=== PATIENT | female | born 2000 | race African-American/Black ===

== ENCOUNTER 2023-07-06 19:46 | Emergency (ER) | payer OTHER ==
[~2023-07-06] VITALS: Ht 160 cm; Wt 59.5 kg
[2023-07-06 19:47] VITALS: TEMP 98.5
[2023-07-06] MEDS ORDERED: MULTTAB20 PO (19:53)
[2023-07-06 22:32] LABS: VENOUS BASE EXCESS -4.1 (-2.0-2.0); VENOUS O2 SATURATION 57.7 % (60.0-80.0); VENOUS PARTIAL PRESSURE CO2 38.8 mmHg (38.0-50.0); VENOUS PARTIAL PRESSURE O2 32.3 mmHg (30.0-50.0); VENOUS PH 7.352 UNITS (7.330-7.430); VENOUS STANDARD HCO3 20.3 MMOL/L; VENOUS TOTAL CO2 22.2 MMOL/L (24.0-28.0)
[2023-07-06 22:37] LABS: BASO % 0.7 % (0.0-1.0); EOS # 0.1 10^3/uL (0.0-0.5); EOS % 1.8 % (0.0-3.0); HEMATOCRIT 29.7 % (36.0-47.0); HEMOGLOBIN 10.5 g/dl (12.0-15.5); LYMPH # 1.5 10^3/uL (1.5-5.0); LYMPH % 28.1 % (24.0-44.0); MEAN CORPUSCULAR HEMOGLOBIN 30.7 pg (27.0-33.0); MEAN CORPUSCULAR HGB CONC 35.4 g/dl (32.0-36.5); MEAN CORPUSCULAR VOLUME 86.8 fl (80.0-96.0); MONO # 0.4 10^3/uL (0.0-0.8); MONO % 6.6 % (2.0-8.0); NEUTROPHILS # 3.4 10^3/uL (1.5-8.5); NEUTROPHILS % 62.4 % (36.0-66.0); PLATELET COUNT, AUTOMATED 278 10^3/uL (150-450); RED BLOOD COUNT 3.42 10^6/uL (4.00-5.40); WHITE BLOOD COUNT 5.5 10^3/uL (4.0-10.0)
[2023-07-06 22:48] LABS: PROTHROMBIN TIME 12.9 SECONDS (12.5-14.5)
[2023-07-06 22:49] LABS: PARTIAL THROMBOPLASTIN TIME 26.2 SECONDS (24.8-34.2)
[2023-07-06 23:02] LABS: ALKALINE PHOSPHATASE 49 U/L (46-116); ALT/SGPT 12 U/L (7.0-40); AST/SGOT 13 U/L (<34); BILIRUBIN,DIRECT < 0.1 MG/DL (<0.4); BILIRUBIN,TOTAL 0.3 MG/DL (0.3-1.2); BLOOD UREA NITROGEN 10 MG/DL (9-23); CALCIUM LEVEL 8.4 MG/DL (8.5-10.1); CARBON DIOXIDE LEVEL 24 MMOL/L (20-31); CHLORIDE LEVEL 105 MMOL/L (98-107); CREATININE FOR GFR 0.51 MG/DL (0.55-1.30); GLOMERULAR FILTRATION RATE > 60.0 (>60); GLUCOSE, FASTING 85 MG/DL (60-100); MAGNESIUM LEVEL 1.8 MG/DL (1.8-2.4); POTASSIUM SERUM 3.8 MMOL/L (3.5-5.1); SODIUM LEVEL 137 MMOL/L (136-145); TOTAL PROTEIN 6.3 G/DL (5.7-8.2)
[2023-07-06 23:04] LABS: THYROID STIMULATING HORMONE 0.831 uIU/ML (0.55-4.78)
[2023-07-07 00:20] VITALS: BP 108/60; O2SAT 98
== END 2023-07-07 00:22 | disposition home or self-care (01) ==
LOC: M ED 19:46
DX: R55 Syncope and collapse (principal); Z79.810 Long term (current) use of selective estrogen receptor modulators (SERMs)